=== PATIENT | male | born 1955 | race Caucasian/White ===

== ENCOUNTER 2016-05-30 01:12 | Inpatient (IN) | payer BC ==
--- NOTE | 2016-05-30 01:24 | EDPHY ---
H & P Stated Complaint: TINGLING BOTH ARMS AND BOTH LEGS X10 HRS, NAUSEA AND POOR BALANCE HPI/ROS: HPI CHIEF COMPLAINT: Nausea, vomiting, unsteady gait, tingling in all his extremities after snorting PHENIBUT HISTORY OF PRESENT ILLNESS: This patient very pleasant 60-year-old male, denies having any significant medical history except for anxiety, and history of alcohol use, presents to the emergency room by private vehicle with his mom at 1:15 a.m. in the morning. After states he has had 10-12 hours of tingling of his upper and lower extremities, also states that he had episode of nausea vomiting prior to arrival, also tells me he feels lightheaded. He also tells me has lower abdominal pain. Denies chest pain shortness of breath recent illness, denies fever. He tells me he has been taking PHENIBUT to help with stress and anxiety. He is unsure exactly how much he has been taking he orders at off of a company in [place] online. Patient tells me that he has been snorting it as it helps him relax faster. He tells me he just ordered at 2:00 p.m..He states since snorting this around 2:00 p.m. he has felt off balance, tingling in his extremities, nauseous. He is visiting his mom here from [place]. Past Medical History: Denies any significant medical history except for alcohol use Past Surgical History: Inguinal hernia repair Social History: denies daily use of tobacco, drugs, alcohol lives in [place] Family History: noncontributory ROS REVIEW OF SYSTEMS: A comprehensive 10 point review of systems is otherwise negative aside from elements mentioned in the history of present illness. Exam Constitutional appears well nontoxic, triage nursing summary reviewed, vital signs reviewed, awake/alert. Eyes normal conjunctivae and sclera, EOMI, PERRLA. HENT normal inspection, atraumatic, moist mucus membranes, no epistaxis, neck supple/ no meningismus, no raccoon eyes. Respiratory clear to auscultation bilaterally, normal breath sounds, no respiratory distress, no wheezing. Cardiovascular rate normal, regular rhythm, no murmur, no edema, distal pulses normal. Gastrointestinal soft, non-tender, no rebound, no guarding, normal bowel sounds, no distension, no pulsatile mass. Genitourinary no CVA tenderness. Musculoskeletal no midline vertebral tenderness, full range of motion, no calf swelling, no tenderness of extremities, no meningismus, good pulses, neurovascularly intact. Skin pink, warm, & dry, no rash, skin atraumatic. Neurologic awake, alert and oriented x 3, AAOx3, moves all 4 extremities equally, motor intact, sensory intact, CN II-XII intact, normal cerebellar, normal vision, normal speech. Psychiatric normal mood/affect. Heme/Lymph/Immune no lymphadenopathy. Differential Diagnosis: includes but is not limited to in a particular order electrolyte abnormality, stroke, intracranial bleed, intra-abdominal process, dehydration, adverse effect from significant PHENIBUT Medical Decision Making: An IV will be established. Obtain blood work, he will have a workup for dizziness, nausea vomiting. He will have a CT scan of his head to rule out significant intracranial abnormality, CT scan of his abdomen pelvis will be hydrated IV fluids. Clinically on exam he does appear dehydrated. Re-evaluation: EKG interpretation by me on record in [employer] system. Impression Time of EK Sinus Rate of 80. PVC. Otherwise unremarkable no signs of acute ischemia or signs of prolonged intervals. 0205: Spoke with Poison Control. Not much info on this Amino Acid. Supportive care recommended. Derivative of Neurotransmitter DONNA. Develop Agitation requiring benzos. Tachy/Rigidity/Nausea/vomiting/Agitation/Bradycardia. Case# [id number] CT scan of the head without IV contrast . The results of the study are negative for anything acute The study was read by Dr. Oakes I viewed the images myself on the PACS system. CT scan of the abdomen pelvis with IV contrast The results of the study are negative for anything acute The study was read by Dr. Oakes. I viewed the images myself on the PACS system. 0432: re-evaluation at this time this patient is resting comfortably no acute distress. Is noted his sodium was 123. Unfortunately he did get 2 L of normal saline prior to his sodium resulting at 1:23 a.m.. At this time he has no complaints he is resting comfortably. I will repeat a BMP. He has been accepted by the hospitalist service by Dr. Becker Reason for admission is hyponatremia, dizziness. Also has been snorting this Phenibut. Has showed no significant agitation. Source: Patient - Personal History Current Tetanus/Diphtheria Vaccine: Unsure - Medical/Surgical History Hx Asthma: No Hx Chronic Respiratory Disease: No Hx Diabetes: No Hx Cardiac Disease: No Hx Renal Disease: No Hx Cirrhosis: No Hx Alcoholism: No Hx HIV/AIDS: No Hx Splenectomy or Spleen Trauma: No Other PMH: INGUINAL HERNIA - Social History Smoking Status: Never smoked Constitutional: Initial Vital Signs Temperature (C) 36.4 C 05/30/16 01:16 Heart Rate 81 05/30/16 01:16 Respiratory Rate 18 05/30/16 01:16 Blood Pressure 175/98 H 05/30/16 01:16 O2 Sat (%) 97 05/30/16 01:16 O2 Delivery Mode Nasal Cannula O2 (L/minute) 3 Allergies/Adverse Reactions: No Known Allergies Allergy (Unverified 05/30/16 01:16) Home Medications: Medication Instructions Recorded Herbals/Supplements -Info Only 1 ea PO DAILY 05/30/16 Methylphenidate HCl 18 mg PO DAILY 05/30/16 [Methylphenidate HCl 18 mg] Methylphenidate HCl [Ritalin 5mg 5 mg PO DAILY@1400 PRN 05/30/16 (*)] Pseudoephedrine HCl [Sudafed] 30 mg PO DAILY PRN 05/30/16 Medical Decision Making - Data Points Laboratory Results: Laboratory Results 05/30/16 01:50 05/30/16 01:50 Medications Given: Discontinued Medications Sodium Chloride (Ns) 2,000 mls @ 0 mls/hr IV ONCE ONE PRN Reason: As Directed Stop: 05/30/16 01:37 Last Admin: 05/30/16 01:52 Dose: 2,000 mls Dextrose (D5w) 1,000 mls @ 50 mls/hr IV CONT PALAK Stop: 11/26/16 11:44 Last Admin: 05/30/16 12:38 Dose: 1,000 mls Ondansetron HCl (Zofran) 4 mg IVP EDNOW ONE Stop: 05/30/16 01:37 Last Admin: 05/30/16 01:53 Dose: 4 mg Departure - Departure Disposition: [facility] Acute Clinical Impression: Lightheadedness, Hyponatremia Condition: Fair
[2016-05-30] MEDS ORDERED: NS 2,000 ML IV ONE (01:36)
[2016-05-30] MEDS ORDERED: ONDANSETRON 4 MG/2 ML VIAL IVP ONE (01:36)
--- NOTE | 2016-05-30 01:48 | CPEKG ---
Heart Rate: 80 RR Interval: 750 P-R Interval: 180 QRSD Interval: 86 QT Interval: 388 QTC Interval: 448 P [place]: 33 QRS [place]: 22 T Wave [place]: 1 EKG Severity - OTHERWISE NORMAL ECG - EKG Impression: SINUS RHYTHM EKG Impression: VENTRICULAR PREMATURE COMPLEX Electronically Signed By: Cal Lantigua 31-May-2016 09:05:57
[2016-05-30 02:02] LABS: % IMMATURE GRANULYOCYTES 0.5 % (0.0-1.1); ABSOLUTE IMMATURE GRANULOCYTES 0.05 10^3/uL (0.00-0.10); ADD DIFF? NO; ADD MORPH? NO; ADD SCAN? NO; ATYPICAL LYMPHOCYTE FLAG 0 (0-99); FRAGMENT RBC FLAG 0 (0-99); HEMATOCRIT 35.6 % (40.0-51.0); HEMOGLOBIN 12.2 g/dL (13.7-17.5); LEFT SHIFT FLG 0 (0-99); LIPEMIA HEMOLYSIS FLAG 90 (0-99); MEAN CELL HEMOGLOBIN 30.8 pg (27.9-34.1); MEAN CELL HEMOGLOBIN CONCENTR. 34.3 g/dL (32.4-36.7); MEAN CELL VOLUME 89.9 fL (81.5-99.8); MEAN PLATELET VOLUME 9.2 fL (8.7-11.7); PLATELET CLUMPS FLAG 0 (0-99); PLATELET COUNT 234 10^3/uL (150-400); RED BLOOD CELL COUNT 3.96 10^6/uL (4.40-6.38); RED CELL DISTRIBUTION WIDTH 13.2 % (11.5-15.2)
[2016-05-30 02:11] LABS: APTT 25.7 SEC (23.0-38.0); INR 1.03 (0.83-1.16); PROTIME(PATIENT) 13.4 SEC (12.0-15.0)
[2016-05-30 02:20] LABS: ALBUMIN 3.8 g/dL (3.5-5.0); ALKALINE PHOSPHATASE 48 IU/L (38-126); ANION GAP 8 mEq/L (8-16); ASPARTATE AMINOTRANSFERASE 27 IU/L (17-59); BILIRUBIN,TOTAL 0.9 mg/dL (0.1-1.4); BILIRUBIN-CONJUGATED 0.5 mg/dL (0.0-0.5); BILIRUBIN-UNCONJUGATED 0.4 mg/dL (0.0-1.1); CALCIUM 9.2 mg/dL (8.5-10.4); CARBON DIOXIDE 22 mEq/l (22-31); CHLORIDE 93 mEq/L (97-110); CREATININE 0.6 mg/dL (0.7-1.3); ETHANOL SERUM < 10 mg/dL (0-10); GLOMERULAR FILTRATION RATE > 60; GLUCOSE 93 mg/dL (70-100); MAGNESIUM 1.8 mg/dL (1.6-2.3); SALICYLATE < 1.0 mg/dL (2.0-20.0); SODIUM 123 mEq/L (134-144); TOTAL PROTEIN 6.3 g/dL (6.3-8.2)
[2016-05-30 02:31] LABS: CREATINE KINASE-MB FRACTION 1.36 ng/mL (0-3.19); TROPONIN I < 0.012 ng/mL (0-0.034)
[2016-05-30 02:47] LABS: ALANINE AMINOTRANSFERASE 41 IU/L (21-72)
[2016-05-30] MEDS ORDERED: IOPAMIDOL (ISOVUE-300) 100 ML BTL IV ONE (03:10)
[2016-05-30] MEDS ORDERED: ONDANSETRON DISINTEGRATING 4 MG TAB PO PRN (04:32)
[2016-05-30] MEDS ORDERED: ONDANSETRON 4 MG/2 ML VIAL IVP PRN (04:32)
[2016-05-30 04:58] LABS: ANION GAP 6 mEq/L (8-16); CALCIUM 8.4 mg/dL (8.5-10.4); CARBON DIOXIDE 26 mEq/l (22-31); CHLORIDE 96 mEq/L (97-110); CREATININE 0.6 mg/dL (0.7-1.3); GLOMERULAR FILTRATION RATE > 60; GLUCOSE 95 mg/dL (70-100); POTASSIUM 3.9 mEq/L (3.5-5.2); SODIUM 128 mEq/L (134-144)
--- NOTE | 2016-05-30 06:14 | GHP ---
[f rep st] HISTORY AND PHYSICAL DATE OF ADMISSION: 05/30/2016 CHIEF COMPLAINT: Nausea, vomiting, ataxia, and tingling. HISTORY OF PRESENT ILLNESS: a 60-year-old male with history of alcohol abuse, anxiety, presenting with his mom this morning after reporting 10-12 hours of tingling in his arms and legs. He also had an episode of nonbloody emesis before arrival. He is feeling dizzy. Reports a loss of appetite and decreased p.o. intake. Denies slurred speech, headache, or falls. Has felt off balance over the last couple days. He denies fevers, chills, sweats. No chest pain, shortness of breath. Complains of crampy lower abdominal pain. He has been snorting Phenibut, which is an amino acid that is supposed to help relieve stress and anxiety. Been using it 4-5 times daily since April. He is ordering these off line from [employer]. He is taking other supplements, including Tyrosine and carnitine. Denies any alcohol since April. Of note, patient is visiting from [place] because his father recently suffered a severe stroke here at [facility] and late April. REVIEW OF SYSTEMS: I completed a 10-point review of systems, negative, except as noted in HPI. PAST MEDICAL HISTORY: 1. History of alcohol abuse, none since April. 2. Anxiety. PAST SURGICAL HISTORY: Inguinal hernia. SOCIAL HISTORY: Lives in [place], staying with his mom in [facility]. His father passed on May 20 from a stroke. Alcohol none since April. No tobacco. Denies other drugs; however, U tox is positive for THC. Mother is Shreya, phone number [phone]. MEDICATIONS: Advil p.r.n., Sudafed p.r.n. Was taking Ritalin. ALLERGIES: No known drug allergies. PHYSICAL EXAM: VITAL SIGNS: Temperature is 36.8, blood pressure is 160/98, heart rate 80s, respiration 18, 98 on 3 L nasal cannula. GENERAL: Patient is tired-appearing, no acute distress. HEENT: PERRLA. EOMI. Dry mucous membranes. Poor dentition. CV: Regular rate and rhythm. No murmurs, gallops , or rubs. LUNGS: Clear to auscultation. No crackles or wheezes. ABDOMEN: Soft, nontender, nondistended. Positive bowel sounds. : Left suprapubic tenderness. No CVA tenderness to palpation. MUSCULOSKELETAL: 5/5 upper and lower extremity strength. NEURO: 2 through 12 intact. Patient with a mild left facial droop. Per Mom, she states that this is not totally new, but she is uncertain. Normal sensation to touch. Bilateral patellar and biceps reflexes. PSYCH: Alert and oriented x3.. LABORATORY DATA: Aspirin and Tylenol negative. Positive THC. Sodium 123, repeat 128 after 2 L normal saline. Potassium 3.9, chloride 96, BUN 12, creatinine 0.6, glucose 95, calcium 8.4. LFTs within normal. Troponin less than 0.012. BNP is 81. Lipase 52. Coags are within normal. EKG is personally reviewed by me. Normal sinus rhythm with a PVC. CT head report per Dr. Oakes was negative, as well as CT abdomen and pelvis; official reads are pending. ASSESSMENT AND PLAN: 1. Dizziness: multifactorial with decreased p.o. intake and hyponatremia. CT head was negative. 2. Hypovolemic hyponatremia: due decreased p.o. intake, emesis and maybe due to Phenibut. Initial sodium was 123. He did get 2 L of normal saline in ER and repeat is 128. Will repeat again in 4 hours as do not want level to increase greater than 10 mEq/24hrs. May warrant free water if continues to rise too quickly. 3. Phenibut ingestion: it is an amino acid that's a derivative of DONNA neurotransmitter. Poison Control was contacted, but there is not much information about it. Some side effects include tachycardia, rigidity, nausea, vomiting, agitation, and bradycardia. May have agitation from withdrawal; add Ativan PRN. 5. Abdominal pain: CTH verbal report, but awaiting final report. Suprapubic TTP on palpation. Check UA. 6. Ataxia: think due to hyponatremia, rather than CVA. CTH pending. Will have PT/OT evaluate patient. If not improved with normalization of sodium, then consider MRI brain. 7. Mild left facial droop: mom thinks may be chronic. No other neuro deficits. CTH negative. Consider MRI. 8. Abdominal pain: CT abdomen was negative. He has suprapubic tenderness. Check a UA. 9. Diet: Regular. 10. DVT prophylaxis: Lovenox. DISPOSITION: Patient warrants inpatient admission, given critically low sodium with symptoms. Continue IV fluids and serial BMP. /[id number]/MODL MTDD
--- NOTE | 2016-05-30 07:22 | CT ---
CT Head (Without Contrast) 3:18 a.m. Indication: Altered mental status. Comparison: None Technique: Standard noncontrast head CT protocol utilizing 5-mm thick collimated slices and field of view of 23 cm. Dose reduction techniques were utilized. Findings: The brain is normally developed. No intracranial hemorrhage, mass lesion, swelling, or ext raaxial fluid collection. The ventricles are normal caliber and midline. The jackson and white matter heard s normal attenuation. No evidence of ischemia. A 0.7 x 0.5 cm soft tissue nodule residing in the left porus acusticus on image 38 of series 3 potentially represents a small acoustic neuroma. The bones a re unremarkable. Several dental caries involve the crown of teeth in the right alveolar ridge posteri sam. Minimal mucosal thickening is present in the ethmoid and bilateral maxillary sinuses. Impression: 1. No acute intracranial process. 2. 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 Recommend MRI of the brain without and with IV contras t optimally characterize. 3. Dental caries and mild maxillary sinus disease. The study was performed as an emergency on-call case and discussed by telephone with Dr. Kaushik bustamante at 4 a.m. on May 30, 2016. The final interpretation is concordant with the original communica tion.
[2016-05-30 08:05] LABS: COLOR YELLOW; LEUKOCYTE ESTERASE,URINE NEGATIVE (NEGATIVE); NITRITE,URINE NEGATIVE (NEGATIVE)
--- NOTE | 2016-05-30 08:27 | DX ---
AP Upright Chest May 30, 2016 at 0206 hours Clinical Indications: Chest pain in a 60-year-old male; no previous studies are available for compari son. Findings: Frontal view (only) shows clear lungs and no masses. Heart size is at the upper limits of normal and pulmonary vessels appear normal. No evidence of pleural effusion. There is mild elevatio n of the right hemidiaphragm. Aortic tortuosity and prominence of the aortic knob may be related to s ystemic hypertension. Impression: Borderline cardiac enlargement.
[2016-05-30] MEDS: ENOXAPARIN 40 MG/0.4 ML SYR SC SCH (10:03)
[2016-05-30] MEDS: LORazepam 2 MG/ML INJ IVP PRN ×2 (10:15→16:48)
[2016-05-30] MEDS ORDERED: METHYLPHENIDATE HCL 18 MG PO SCH (10:30)
--- NOTE | 2016-05-30 10:34 | CT ---
CT Scan of the Abdomen and Pelvis (With Contrast) Indication: Abdominal pain. Technique: No oral or rectal contrast. 95 mL of Isovue-300 were given intravenously by machine power injection. Multidetector helical CT imaging was performed from the diaphragm to the symphysis pubis . Dose reduction techniques were utilized. Comparison: None. Findings: No pneumoperitoneum, free fluid, mesenteric edema, lymphadenopathy, or mass. Moderate hiatal hernia. Normal appendix. Moderate constipation and moderate diverticulosis of the christopher cending and sigmoid colon. No acute diverticulitis. No bowel obstruction or adynamic ileus. The liver, spleen, pancreas, gallbladder, adrenal glands, and kidneys are normal. Bilateral upper uri nary collecting system is minimally full, and the urinary bladder is mildly distended. The prostate g land is enlarged. The heart size is normal. Lung bases are clear except for minimal posterior dependent atelectasis. Th e abdominal aorta is normal caliber. No calcified atheroma. A tiny umbilical hernia contains only fat. Bilateral mild direct inguinal hernias containing only fat . Impression: 1. No acute intraabdominal inflammatory process, lymphadenopathy, or mass. 2. Diverticulosis of the sigmoid and descending colon. No diverticulitis. 3. Normal appendix. 4. Moderate hiatal hernia. The study was performed as an emergency on-call case and discussed by telephone with Dr. Glover at 4 :10 a.m. May 30, 2016. The final interpretation is concordant with the original communication.
[2016-05-30 11:05] LABS: ANION GAP 8 mEq/L (8-16); CALCIUM 9.3 mg/dL (8.5-10.4); CARBON DIOXIDE 26 mEq/l (22-31); CHLORIDE 98 mEq/L (97-110); CREATININE 0.7 mg/dL (0.7-1.3); GLOMERULAR FILTRATION RATE > 60; GLUCOSE 104 mg/dL (70-100); POTASSIUM 4.6 mEq/L (3.5-5.2); SODIUM 132 mEq/L (134-144)
--- NOTE | 2016-05-30 11:38 | HOSPPROG ---
Hospitalist Progress Note Assessment/Plan: patient seen and examined. He is feeling better overall with Resolution of tingling. he has not walked yet. He is not nauseous. Plan - hyponatremia with sodium consistent with SIADH * sodium is increasing somewhat rapidly * will start D5 W and continue to watch * will keep 1 more day * SIADH is probably related to supplements he has been taking Objective: Vital Signs Temp Pulse Resp BP Pulse Ox 36.8 C 77 16 136/81 H 92 05/30/16 11:19 05/30/16 11:19 05/30/16 11:19 05/30/16 11:19 05/30/16 11:19 Laboratory Results 05/30/16 10:18 05/29/16 05/30/16 05/31/16 05:59 05:59 05:59 Output Total 1350 Balance -1350 PT 13.4 SEC (12.0-15.0) 05/30/16 01:50 INR 1.03 (0.83-1.16) 05/30/16 01:50 ICD10 Worksheet Patient Problems: Problems Problem Status Diagnosed Hyponatremia Acute Lightheadedness Acute
[2016-05-30] MEDS ORDERED: D5W 1,000 ML IV SCH (11:45)
[2016-05-30] MEDS: ACETAMINOPHEN 325 MG TAB PO PRN (15:01)
[2016-05-30] MEDS: guaiFENesin 600 MG TAB.ER PO SCH ×2 (15:13→20:22)
[2016-05-30 18:03] LABS: ANION GAP 11 mEq/L (8-16); CALCIUM 9.3 mg/dL (8.5-10.4); CARBON DIOXIDE 23 mEq/l (22-31); CHLORIDE 96 mEq/L (97-110); CREATININE 0.7 mg/dL (0.7-1.3); GLOMERULAR FILTRATION RATE > 60; GLUCOSE 153 mg/dL (70-100); POTASSIUM 4.1 mEq/L (3.5-5.2); SODIUM 130 mEq/L (134-144)
[2016-05-30 20:57] LABS: ANION GAP 8 mEq/L (8-16); CALCIUM 9.1 mg/dL (8.5-10.4); CARBON DIOXIDE 25 mEq/l (22-31); CHLORIDE 97 mEq/L (97-110); CREATININE 0.7 mg/dL (0.7-1.3); GLOMERULAR FILTRATION RATE > 60; GLUCOSE 102 mg/dL (70-100); POTASSIUM 4.3 mEq/L (3.5-5.2); SODIUM 130 mEq/L (134-144)
[2016-05-31 05:49] LABS: % IMMATURE GRANULYOCYTES 0.6 % (0.0-1.1); ABSOLUTE IMMATURE GRANULOCYTES 0.04 10^3/uL (0.00-0.10); ADD DIFF? NO; ADD MORPH? NO; ADD SCAN? NO; ATYPICAL LYMPHOCYTE FLAG 0 (0-99); FRAGMENT RBC FLAG 0 (0-99); HEMATOCRIT 41.4 % (40.0-51.0); LEFT SHIFT FLG 0 (0-99); LIPEMIA HEMOLYSIS FLAG 90 (0-99); MEAN CELL HEMOGLOBIN 30.8 pg (27.9-34.1); MEAN CELL HEMOGLOBIN CONCENTR. 33.8 g/dL (32.4-36.7); MEAN CELL VOLUME 91.2 fL (81.5-99.8); MEAN PLATELET VOLUME 9.5 fL (8.7-11.7); PLATELET CLUMPS FLAG 0 (0-99); PLATELET COUNT 254 10^3/uL (150-400); RED BLOOD CELL COUNT 4.54 10^6/uL (4.40-6.38); RED CELL DISTRIBUTION WIDTH 13.6 % (11.5-15.2)
[2016-05-31 06:20] LABS: ALANINE AMINOTRANSFERASE 30 IU/L (21-72); ALBUMIN 3.6 g/dL (3.5-5.0); ALKALINE PHOSPHATASE 46 IU/L (38-126); ANION GAP 9 mEq/L (8-16); ASPARTATE AMINOTRANSFERASE 19 IU/L (17-59); BILIRUBIN,TOTAL 0.5 mg/dL (0.1-1.4); CALCIUM 9.1 mg/dL (8.5-10.4); CARBON DIOXIDE 26 mEq/l (22-31); CHLORIDE 101 mEq/L (97-110); CREATININE 0.7 mg/dL (0.7-1.3); GLOMERULAR FILTRATION RATE > 60; GLUCOSE 94 mg/dL (70-100); POTASSIUM 4.2 mEq/L (3.5-5.2); SODIUM 136 mEq/L (134-144); TOTAL PROTEIN 6.2 g/dL (6.3-8.2)
[2016-05-31] MEDS: guaiFENesin 600 MG TAB.ER PO SCH ×2 (09:14→20:15)
[2016-05-31] MEDS: ENOXAPARIN 40 MG/0.4 ML SYR SC SCH (09:14)
--- NOTE | 2016-05-31 09:21 | HOSPPROG ---
Hospitalist Progress Note Assessment/Plan: * hyponatremia * urine sodium was consistent with SIADH * possibly related to the supplement he was taking which he has stopped * will continue to monitor sodium * probable withdrawal from supplement * phenibut is a DONNA increasing supplement but is also obtained from [employer] and so there is some suspicion on my part that this may be adulterated with benzodiazepines * will watch another day For worsening withdrawal which he says begins 2 days after stopping * will add scheduled Librium and p.r.n. * anxiety and depression * discussed alternative supplements to help including SAMe, fish oil, magnesium, vitamin-D Subjective: Feeling pretty tremulous. He gets this way after stopping the supplement called Phenibut Objective: Vital Signs Temp Pulse Resp BP Pulse Ox 36.5 C 71 16 143/93 H 97 05/31/16 07:08 05/31/16 07:08 05/31/16 07:08 05/31/16 07:08 05/31/16 07:08 Laboratory Results 05/31/16 04:25 05/31/16 04:25 05/30/16 05/31/16 06/01/16 05:59 05:59 05:59 Intake Total 248 Output Total 4750 Balance -4502 PT 13.4 SEC (12.0-15.0) 05/30/16 01:50 INR 1.03 (0.83-1.16) 05/30/16 01:50 - Time Spent With Patient Time Spent with Patient: greater than 35 minutes (discussing condition and treatment options) Time Spent with Patient: Greater than 35 minutes spent on this patients care, greater than 50% of time spent counseling, educating, and coordinating care regarding the above mentioned plan. - Physical Exam Constitutional: no apparent distress, appears nourished, not in pain Eyes: anicteric sclera, EOMI Ears, Nose, Mouth, Throat: moist mucous membranes, hearing normal Cardiovascular: regular rate and rhythym, no murmur, rub, or gallop Respiratory: no respiratory distress, no rales or rhonchi, clear to auscultation Gastrointestinal: normoactive bowel sounds, soft, non-tender abdomen, no palpable masses Neurologic: AAOx3, other ( mild tremor) ICD10 Worksheet Patient Problems: Problems Problem Status Diagnosed Hyponatremia Acute Lightheadedness Acute
[2016-05-31] MEDS: chlordiazePOXIDE 25 MG CAP PO SCH ×2 (09:39→20:15)
[2016-05-31] MEDS: chlordiazePOXIDE 25 MG CAP PO PRN (13:50)
[2016-05-31] MEDS: ACETAMINOPHEN 325 MG TAB PO PRN (16:10)
[2016-05-31] MEDS ORDERED: KETOROLAC 30 MG/1 ML SDV IVP ONE (16:26)
[2016-05-31 22:39] VITALS: RESP 16
[2016-06-01 05:29] LABS: ANION GAP 10 mEq/L (8-16); CALCIUM 9.1 mg/dL (8.5-10.4); CARBON DIOXIDE 26 mEq/l (22-31); CHLORIDE 99 mEq/L (97-110); CREATININE 0.7 mg/dL (0.7-1.3); GLOMERULAR FILTRATION RATE > 60; GLUCOSE 95 mg/dL (70-100); POTASSIUM 3.9 mEq/L (3.5-5.2); SODIUM 135 mEq/L (134-144)
[2016-06-01 07:19] VITALS: BP 135/79; PULSE 69; TEMP 97.6; O2SAT 93
[2016-06-01] MEDS: chlordiazePOXIDE 25 MG CAP PO SCH (08:48)
[2016-06-01] MEDS: guaiFENesin 600 MG TAB.ER PO SCH (08:48)
[2016-06-01] MEDS: ENOXAPARIN 40 MG/0.4 ML SYR SC SCH (08:48)
[2016-06-01] MEDS: LORazepam 2 MG/ML INJ IVP PRN (10:56)
--- NOTE | 2016-06-01 11:58 | GDS ---
[f rep st] DISCHARGE SUMMARY DISCHARGE DIAGNOSES: 1. Hyponatremia secondary to herbal medication. 2. Possible withdrawal from supplement called Phenibut from [employer], which is possibly adulterated wit h benzodiazepines. 3. Anxiety and depression. HISTORY: This is a 60-year-old male who presented with tingling and ataxia. His sodium was 123. HOSPITAL COURSE: The patient was admitted and given IV fluids. Sodium came up appropriately. His u rine sodium was 70, consistent with SIADH. I do think this may be related to the supplement he was t aking. He has been off that supplement, and his sodium has remained stable. He did have symptoms of withdrawal, including tremor and tachycardia. The supplement called Phenibut is advertised as DONNA increasing supplement, but it is from [employer] though and I do wonder if this may be adulterated with so me type of benzodiazepine as he did have fairly significant withdrawal. We did treat him with p.o. L ibrium, and he will taper that off at home. I have given him some options for other natural methods of trying to treat his depression and anxiety, including Samee as well as high-dose fish oil. He is visiting in town and will follow up with his primary doctor when he gets back home. TIME SPENT: Greater than 30 minutes was spent on discharge. /[id number]/MODL
[2016-06-01] MEDS ORDERED: KETOROLAC 30 MG/1 ML SDV IVP ONE (14:00)
[2016-06-01] MEDS: chlordiazePOXIDE 25 MG CAP PO PRN (14:11)
== END 2016-06-01 14:31 | disposition home or self-care (01) | DRG 644 ==
LOC: F3E 06:00
PROVIDERS: ADMIT Internal Medicine; ATTEND Internal Medicine
DX: E22.2 Syndrome of inappropriate secretion of antidiuretic hormone (principal); F19.230 Other psychoactive substance dependence with withdrawal, uncomplicated; T50.905A Adverse effect of unspecified drugs, medicaments and biological substances, initial encounter; T39.8X5A Adverse effect of other nonopioid analgesics and antipyretics, not elsewhere classified, initial encounter; F41.8 Other specified anxiety disorders
CPT/HCPCS: 80305; 96374; 97116-GP; 97161-GP; 97165-GO; 97535-GO; G0480; J1650; J1885; J2405; Q9967

== ENCOUNTER 2016-06-03 16:48 | Emergency (ER) | payer BC ==
[2016-06-03 16:59] VITALS: RESP 16
[2016-06-03 17:48] LABS: % IMMATURE GRANULYOCYTES 0.8 % (0.0-1.1); ABSOLUTE IMMATURE GRANULOCYTES 0.07 10^3/uL (0.00-0.10); ADD DIFF? NO; ADD MORPH? NO; ADD SCAN? NO; ATYPICAL LYMPHOCYTE FLAG 0 (0-99); FRAGMENT RBC FLAG 0 (0-99); HEMATOCRIT 45.1 % (40.0-51.0); HEMOGLOBIN 14.7 g/dL (13.7-17.5); LEFT SHIFT FLG 0 (0-99); LIPEMIA HEMOLYSIS FLAG 80 (0-99); MEAN CELL HEMOGLOBIN 30.6 pg (27.9-34.1); MEAN CELL HEMOGLOBIN CONCENTR. 32.6 g/dL (32.4-36.7); MEAN CELL VOLUME 93.8 fL (81.5-99.8); MEAN PLATELET VOLUME 9.2 fL (8.7-11.7); PLATELET CLUMPS FLAG 10 (0-99); PLATELET COUNT 307 10^3/uL (150-400); RED BLOOD CELL COUNT 4.81 10^6/uL (4.40-6.38); RED CELL DISTRIBUTION WIDTH 13.6 % (11.5-15.2)
[2016-06-03 17:55] LABS: ANION GAP 8 mEq/L (8-16); CALCIUM 9.9 mg/dL (8.5-10.4); CARBON DIOXIDE 24 mEq/l (22-31); CHLORIDE 107 mEq/L (97-110); CREATININE 0.9 mg/dL (0.7-1.3); ETHANOL SERUM < 10 mg/dL (0-10); GLOMERULAR FILTRATION RATE > 60; GLUCOSE 76 mg/dL (70-100); POTASSIUM 5.1 mEq/L (3.5-5.2); SODIUM 139 mEq/L (134-144)
--- NOTE | 2016-06-03 17:55 | EDPHY ---
H & P Stated Complaint: SI Source: Patient - Personal History Current Tetanus/Diphtheria Vaccine: Unsure Current Tetanus Diphtheria and Acellular Pertussis (TDAP): Unsure - Medical/Surgical History Hx Asthma: No Hx Chronic Respiratory Disease: No Hx Diabetes: No Hx Cardiac Disease: No Hx Renal Disease: No Hx Cirrhosis: No Hx Alcoholism: No Hx HIV/AIDS: No Hx Splenectomy or Spleen Trauma: No Other PMH: INGUINAL HERNIA. Hospitalization for hyponatremia on 05/30/2016 - Social History Smoking Status: Never smoked Time Seen by Provider: 06/03/16 17:04 HPI/ROS: CHIEF COMPLAINT: Patient has no complaints. He arrives on an M1 hold HISTORY OF PRESENT ILLNESS: This is a 60-year-old male who was brought to the emergency department from [facility] where he was being evaluated. He has no complaints. He tells me that his mother took him to the [facility] with the thought that he was behaving peculiarly. He tells me that he was not opening his eyes during the day today because he did not want to see anything that reminded him of his father who recently of a stroke. He denies suicidality or homicidality to me. Of note, he was recently admitted to the hospital, 05/30/2016, with hyponatremia. REVIEW OF SYSTEMS: A ten point review of systems was performed and is negative with the exception of the items mentioned in the HPI. (Sybil Nava) - Social History Additional Social History: He is currently living with his mother. He tells me that he lives in [place]. His father last month for stroke. He has a history of alcohol abuse but states that he has been sober since April. He denies the use of tobacco products. He denies the use of illicit drugs or prescriptions not belonging to him. (Sybil Nava) - Physical Exam Exam: General Appearance: Alert. Vital signs reviewed. Blood pressure 139/94. Eyes closed throughout the interview. Eyes: Pupils equal and round, no conjunctival injection, no discharge. Anicteric. ENT, Mouth: Mucous membranes are moist, no oropharyngeal erythema or edema. Neck: No lymphadenopathy, supple. Respiratory: Lungs are clear to auscultation; no wheezes, rales, or rhonchi. Cardiovascular: Regular rate and rhythm; no murmur, rub, or gallop. Gastrointestinal: Abdomen is soft and nontender, no masses or organomegaly, bowel sounds normal. Skin: Warm and dry, no rashes on exposed skin, normal color. Back: Nontender to palpation over the thoracolumbar spine. Extremities: No lower extremity edema, no calf tenderness or swelling. Neurological: Alert and oriented. Moving all four extremities easily and equally. Cranial nerves II through XII are examined and are intact (visual acuity not tested). Strength is 5 over 5 bilaterally with testing of all major motor groups. Sensation is intact to light touch over all 4 extremities. Psychiatric: Flat affect. (Sybil Nava) Constitutional: Initial Vital Signs Temperature (C) 36.4 C 06/03/16 16:57 Heart Rate 86 06/03/16 16:57 Respiratory Rate 16 06/03/16 16:57 Blood Pressure 139/94 H 06/03/16 16:57 O2 Sat (%) 96 06/03/16 16:57 O2 Delivery Mode Room Air Allergies/Adverse Reactions: No Known Allergies Allergy (Unverified 06/03/16 16:57) Home Medications: Medication Instructions Recorded Methylphenidate HCl 18 mg PO DAILY 05/30/16 [Methylphenidate ER] Methylphenidate HCl [Ritalin 5mg 5 mg PO DAILY@1400 PRN 05/30/16 (*)] Pseudoephedrine HCl [Sudafed 30mg 30 mg PO DAILY PRN 05/30/16 (OTC)] chlordiazePOXIDE [Librium 25 mg 25 mg PO TID PRN #30 cap 06/01/16 (*)] Medical Decision Making ED Course/Re-evaluation: 700: The patient is signed out to me at change of shift by Dr. Brandon Hansen. I went personally evaluated the patient. He was stable at that time. He is awaiting transfer. I discussed the case with Psychiatric Services. They found placement for the patient. They will be transferred. EMTALA completed. Patient is stable at transfer. (Elsy Tafoya) I took over care of this patient at 10:00 p.m.. This patient is on an M1 hold for psychotic behavior. He is to be admitted. Behavioral Health is currently searching for placement. 3:40 a.m., Marcelle luu [facility] [address] informs me that probable destination for admission is [facility] but sometime later this morning. 7:00 a.m., patient still awaits admission. Care turned over to Dr. Tafoya at this time. (Brandon Hansen) 60-year-old male with recent hospitalization for hyponatremia. He was placed on an M1 hold at the [facility]. The time of my interview he denies suicidality or homicidality. Throughout my interview he kept his eyes closed, he would open them when asked to do so. He tells me that he has eyes closed because he does not want to see his surroundings. Has a flat affect. He denies visual or auditory hallucinations and does not appear to be attending to external stimuli. Blood work and urine drug screen pending at 6:00 p.m.. He will undergo further mental health evaluation after these results are obtained. Patient is medically cleared. His care is transferred to Dr. Manuel Hyde at 7: 45 p.m.. (Sybil Nava) Differential Diagnosis: I considered a differential diagnosis that includes but is not limited to electrolyte abnormality, effect of drug or supplement, depression, paresh, psychosis, and personality disorder. (Sybil Nava) - Data Points Laboratory Results: Laboratory Results 06/03/16 16:37 06/03/16 16:37 Departure - Departure Disposition: Other Psych, Not [facility] Clinical Impression: Psychosis Condition: Fair Referrals: NONE *PRIMARY CARE P,. [Primary Care Provider] - As per Instructions
[2016-06-03 23:08] VITALS: O2SAT 95
[2016-06-04 08:10] VITALS: BP 141/76; PULSE 77; TEMP 97.5
== END 2016-06-04 14:05 ==
DX: F29 Unspecified psychosis not due to a substance or known physiological condition (principal)
CPT/HCPCS: 80305; G0480